=== PATIENT | male | born 1965 | race Caucasian/White ===

== ENCOUNTER → 2016-07-09 | Outpatient (CLI) | payer BC ==
[2015-03-03 19:00] VITALS: BP 128/86
[~2016-07-09] MED LIST: DIPH25CA58 PO; DIVA500T2 PO; HYDR-2762 PO; LURA40TA PO; TRAM50TA PO; ZOLP10TA PO
--- NOTE | 2016-07-09 13:35 | RAD ---
PROCEDURE MRI lumbar spine without contrast. HISTORY Low back pain with left leg pain for 2 weeks TECHNIQUE Sagittal and axial T1 and T2 and sagittal STIR images were acquired of the lumbar spine. Contrast: None COMPARISON February 20, 2014 FINDINGS There is some motion degradation. Lumbar vertebral body stature and AP alignment are preserved. There is again mild degenerative disc disease at L5-S1, mild disc desiccation at L4-5. Conus terminates normally T12-L1. There is no significant focal marrow edema. There is mild lumbar levoscoliosis. There are anterior annular tears L2-3 to L4-5, posterior annular tear L5-S1. L2-3: Neural foramina and spinal canal are adequate. L3-4: Spinal canal and neural foramina are adequate. There is mild buckling of the ligamentum flavum and facet degenerative change. L4-5: There is again minimal disc osteophyte complex and bulge. Spinal canal and neural foramina are adequate. L5-S1: There is again shallow posterior mostly central protrusion, no significant impingement of the descending S1 nerve roots. Spinal canal is overall adequate. Neural foramina are adequate. IMPRESSION 1. Findings are similar comparing with 2014 exam. There is again shallow posterior protrusion at L5-S1 without significant neural impingement or spinal stenosis. There is mild degenerative disc disease at L5-S1 and L4-5, very mild spondylosis. Electronically signed by: Low Jeffries MD (Jul 09, 2016 13:34:28)
== END | disposition home or self-care (01) ==
LOC: MRI 12:26
DX: M51.37 Other intervertebral disc degeneration, lumbosacral region (principal); M25.78 Osteophyte, vertebrae; M47.896 Other spondylosis, lumbar region; M51.27 Other intervertebral disc displacement, lumbosacral region
CPT/HCPCS: 72148

== ENCOUNTER → 2016-07-30 | Outpatient (CLI) | payer BC ==
[2015-03-03 19:00] VITALS: BP 128/86
[~2016-07-30] MED LIST changes: +IOHEXOL 180 MG/ML 10 ML VIAL. ONE; +methylPREDNISolone ACETATE 40 MG/ML VIAL. ONE; +methylPREDNISolone ACETATE 80 MG/ML VIAL. ONE
--- NOTE | 2016-07-31 12:54 | PAIN ---
DATE OF SERVICE: 07/30/2016 DIAGNOSES: Lumbar radiculopathy, lumbar herniated disk and lumbar degenerative disk disease. HISTORY OF PRESENT ILLNESS: The patient is a 50-year-old male who returns for a followup status post lumbar epidural steroid injections, last seen in January 2015. The patient did very well with these with near 80% improvement, but the pain has returned now, over the past several weeks, he was lifting an object off the floor, bending over forward. When he picked it up, he felt something pop in his back and had pain radiating to his left lower extremity as it was previously when he lifted a bag of salt also and this aggravated the pain as well about a week ago. The patient reports it is across the low back into the left posterior gluteus, posterior thigh, posterior calf, into the foot on the left side. The patient reports it is a 7 on a scale of 10, aching and dull with shooting pain, radiating pain and some numbness in the leg, also some weakness with ambulation and standing at work. The patient reports no symptoms in the right lower extremity currently but across the low back bilaterally. The patient did have an MRI scan of the lumbar spine dated 07/09/2016 showing similar finding compared with the 2013 exam, ____ protrusion at L5-S1 without significant nerve impingement or spinal stenosis, mild degenerative disease at L5-S1 and L4-L5 with spinal canal and neuroforamen of adequate L4-L5 shows minimal disk osteophyte complex and bulge as well. PHYSICAL EXAMINATION: VITAL SIGNS: The patient's blood pressure is 148/56, pulse 87, respirations 16, temperature is 98.2 degrees Fahrenheit, height 6 feet 4 inches, weight 277 pounds. GENERAL: The patient is awake, alert, oriented, appropriate with very pleasant demeanor. HEENT: Shows normocephalic, atraumatic. Extraocular movements are intact and symmetrical. Oral cavity, mucous membranes moist and pink. Dentition intact. NECK: Supple, without palpable lymphadenopathy. Swallow reflexes are symmetrical. CHEST: Shows normal infection, breath sounds are clear to auscultation bilaterally. CARDIOVASCULAR: S1, S2, clear. ABDOMEN: The patient's abdomen is obese, soft, nontender, nondistended. No hepatosplenomegaly, no rebound or guarding demonstrated. BACK: Spine grossly midline. Normal appearing thoracic kyphosis and lumbar lordotic curvature. Lumbar paraspinal musculature shows symmetrical on inspection with some moderate tenderness in the middle and lower distribution of paraspinous muscles bilaterally but symmetrical without evidence of atrophy or hypertrophy. No tenderness over the spinous processes. No tenderness over the sacrum or sacroiliac regions. The patient showed good rotation of motion in lumbar spine both laterally greater than 10 degrees right and left as well as extension greater than 10 degrees, forward flexion 45 degrees without difficulty. EXTREMITIES: The lower extremities showed deep tendon reflexes 2+ in the patella and 1+ tendo calcaneus tendons. Motor exam is strong with 5/5 dorsiflexion and extension and equal bilaterally as quadriceps and hamstrings flexion. Peripheral pulses are 1+, posterior tibial and dorsalis pedis pulses. No peripheral edema is noted. No clubbing, no cyanosis. Lower extremities are warm and dry to touch. Equal in color and appearance. Straight leg raising is noted to be positive on the left at about 35 to 40 degrees with pain radiating to posterior gluteus, posterior thigh, which has decreased but no really knee flexion right side is negative. ____ are negative bilaterally. The patient is able to stand, stand on his toes without difficulty, has no loss of balance. He is walking with a normal-appearing gait for short distances ____ not using any assistive devices. Options were discussed with the patient. The patient's old chart was reviewed, as his current medication regimen and updated. REVIEW OF SYSTEMS: Current review of systems updated today as well. We will proceed with a lumbar epidural steroid injection. He has done very well with these in the past. Risks were again discussed including but not limited to bleeding, infection, possibility of epidural hematoma, subsequent neurologic compromise, dural puncture headaches, spinal cord and/or nerve damage, side effects of steroid medications and poor results regarding pain control. The patient understands and wishes to proceed. He should return to clinic in approximately 2 weeks for followup. He was counseled on return appointment, activity level and side effects to be aware of. DIAGNOSES: Lumbar radiculopathy with lumbar herniated disk and lumbar degenerative disk disease. PROCEDURE: Lumbar epidural steroid injection, translaminar approach to the L5-S1 level using C-arm fluoroscopic guidance under sterile prep and drape using local anesthetic. MEDICATIONS INJECTED: 120 mg Depomedrol, plus 10 mL of preservative free normal saline and 2 mL of Isovue contrast. Condition at discharge is stable. The patient tolerated procedure well, had no complications. FLORENCIA FOOTE MD DR: MANE/brigitte JOB#: [id number] / [id number]
== END | disposition home or self-care (01) ==
LOC: PNCL 07:21
PROVIDERS: ATTEND Anesthesiology
DX: M51.16 Intervertebral disc disorders with radiculopathy, lumbar region (principal)
CPT/HCPCS: 62323; J1030; J1040

== ENCOUNTER → 2016-08-13 | Outpatient (CLI) | payer BC ==
[2015-03-03 19:00] VITALS: BP 128/86
[~2016-08-13] MED LIST changes: +QUET100T4 PO
--- NOTE | 2016-08-14 03:34 | PAIN ---
DATE OF SERVICE: 08/13/2016 PROGRESS NOTE DIAGNOSES: Lumbar radiculopathy with lumbar herniated disc and lumbar degenerative disc disease. HISTORY OF PRESENT ILLNESS: The patient is a 50-year-old male who returns for followup status post lumbar epidural steroid injection x 1. The patient reports about 40% improvement after the injection. Has still some pain in the low back and left leg, but much improved. The patient is increasing his activity with greater ease and comfort. Still has some pain at the end of his working day, but during the day, he is doing fairly well. The patient reports his pain as a 7 on a scale of 10 at its worst, but it is only at the end of the day and has only been present for about 3 or 4 days at that level, as he did very well for the first week and a half or so after his injection. The patient reports no new motor or sensory deficits, no new bowel or bladder incontinence or other complaints. He described his pain as sharp, alternating with dull and aching, radiating to the left posterior gluteus, posterior lateral thigh, posterior calf as previously. PHYSICAL EXAMINATION: VITAL SIGNS: Today, the patient's blood pressure is 141/83, pulse 90, respirations 18, temperature 98.0 degrees Fahrenheit, height 6 feet 4 inches, weight is 270 pounds. GENERAL: The patient is awake, alert, oriented, appropriate, very pleasant demeanor. HEENT: Shows normocephalic and atraumatic. Extraocular movements are intact and symmetrical. Oral cavity shows mucous membranes are moist and pink. Dentition is intact. NECK: Shows anterior throat supple without palpable lymphadenopathy noted. Swallow reflex is symmetrical. CHEST: Shows normal with inspection. Breath sounds are clear to auscultation bilaterally. HEART: Shows S1 and S2 clear. No murmurs auscultated. ABDOMEN: Soft, nontender, nondistended. BACK: Shows spine grossly midline. Lumbar paraspinous muscle shows symmetrical. No significant tenderness with palpation, only diffusely tender in the low lumbar distribution bilaterally without radiation. The patient shows full rotational motion of the lumbar spine, both laterally as well as extension and flexion without difficulty. No tenderness over the sacrum and sacroiliac regions with palpation. EXTREMITIES: Lower extremities show deep tendon reflexes at 2+ in the patellar, 1+ tendo-calcaneus tendons, are equal. Motor exam is strong with 5/5 dorsiflexion, extension, quadriceps and hamstring flexion bilaterally. PLAN: Options were discussed with the patient at this time, the patient's old chart was reviewed as his current medication regimen and updated. Current review of systems updated today as well. We will proceed with a second lumbar epidural steroid injection today with fluoroscopic guidance. Risks were again discussed including but not limited to bleeding, infection, possibility of epidural hematoma, subsequent neurologic compromise, dural puncture, headaches, spinal cord and/or nerve damage, side effects of steroid medication and poor results regarding pain control. The patient understands and wishes to proceed. The patient will return to clinic in approximately 2 weeks for followup. He is counseled on return appointment, activity level, and side effects to be aware of. DIAGNOSES: Lumbar radiculopathy with lumbar herniated disc and lumbar degenerative disk disease. PROCEDURES: Lumbar epidural steroid injection in translaminar approach at the L5-S1 level using C-arm fluoroscopic guidance under sterile prep and drape using local anesthetic. MEDICATIONS INJECTED: Depo-Medrol 120 mg plus 10 mL of preservative-free normal saline and 2 mL of Isovue for contrast. CONDITION AT DISCHARGE: Stable. The patient tolerated the procedure well, had no complications. FLORENCIA FOOTE MD DR: MANE/nts JOB#: [id number] / [id number]
== END ==
LOC: PNCL 07:39
PROVIDERS: ATTEND Anesthesiology
DX: M51.16 Intervertebral disc disorders with radiculopathy, lumbar region (principal)
CPT/HCPCS: 62323; J1030; J1040

== ENCOUNTER → 2016-10-08 | Outpatient (CLI) | payer BC ==
[2015-03-03 19:00] VITALS: BP 128/86
--- NOTE | 2016-10-09 00:20 | PN ---
DATE: 10/08/2016 PROGRESS NOTE FOR PAIN CLINIC DIAGNOSES: Lumbar radiculopathy with lumbar herniated disk, lumbar degenerative disk disease. HISTORY OF PRESENT ILLNESS: The patient is a 51-year-old male who returns for followup status post lumbar epidural steroid injections x 2. The patient reports about 40% improvement overall, was initially doing much better, but the pain is returning now in the low back and into his left lower extremity, initially it was the right one, the right has cleared up now with significant pain in his left leg as he had on his last visit. The patient reports anywhere from a 5 to 8 on scale of 10, it is burning, it is sharp, aching and dull, worse with standing and walking, changing positions, better with sitting or lying down, still sleeping well though without any difficulty sleeping through the night. The patient reports no new motor or sensory deficits, no new bowel or bladder incontinence or other complaints, but still significant pain in the low back, left leg, mostly in the posterior gluteus, posterior thigh, posterior lower leg to the ankle on the left side only. PHYSICAL EXAMINATION: VITAL SIGNS: Today, the patient's blood pressure is 129/79, pulse 90, respirations 20, temperature 97.8 degrees Fahrenheit, height 6 feet 4 inches, weighs 276 pounds. GENERAL: The patient is awake, alert, oriented, appropriate, has a very pleasant demeanor. HEENT: Head shows normocephalic, atraumatic. Extraocular movements are intact, symmetrical. Oral cavity has mucous membranes moist and pink. Dentition is intact. NECK: Shows anterior throat supple without palpable lymphadenopathy noted. Swallow reflex is symmetrical. CHEST: Shows normal on inspection. Breath sounds are clear to auscultation bilaterally. HEART: Shows S1 and S2 clear. ABDOMEN: Soft, nontender, nondistended. No palpable organomegaly is noted. No rebound or guarding demonstrated. BACK: The patient's back shows spine grossly in the midline. Lumbar paraspinous muscle shows some moderate tenderness with palpation bilaterally in the lower lumbar distribution, but only diffusely without atrophy, hypertrophy or asymmetry. No radiation of pain, no tenderness over the sacrum or sacroiliac regions. The patient shows good rotational motion of the lumbar spine, both laterally greater than 10 degrees right and left as well as extension greater than 10 degrees, forward flexion 45 degrees without exacerbation of pain. EXTREMITIES: The patient's lower extremities showed deep tendon reflexes at 2+ in the patellar, 1+ tendo-calcaneus tendons are symmetrical. Motor exam is strong with 5/5 dorsiflexion and extension as well as quadriceps and hamstring flexion and symmetrical. Options were discussed with the patient and the patient's old chart was reviewed as his current medication regimen updated. Current review of systems updated today as well and we will proceed with a third in the series of lumbar epidural steroid injection with fluoroscopic guidance. Risks were again discussed including, but not limited to bleeding, infection, possibility of epidural hematoma, subsequent neurologic compromise, dural puncture, headaches, spinal cord and/or nerve damage, side effects of steroid medication and poor results regarding pain control. The patient understands and wishes to proceed. The patient will return to clinic in approximately 2 weeks for followup, was counseled on return appointment, activity level and side effects to be aware of. We also discussed physical therapy and weight loss with the patient. He is interested in both these. We will make some arrangements for some pool therapy, also some weight loss training resources were shared with him. DIAGNOSIS: Lumbar radiculopathy with lumbar degenerative disk disease and lumbar herniated disk. PROCEDURE: Lumbar epidural steroid injection in translaminar approach at L5-S1 level using C-arm fluoroscopic guidance under sterile prep and drape using local anesthetic. Medication injected is 120 mg Depo-Medrol plus 10 mL of preservative-free normal saline and 2 mL Isovue for contrast. CONDITION AT DISCHARGE: Stable. The patient tolerated procedure well, had no complications. FLORENCIA FOOTE MD DR: MANE/brigitte JOB#: [id number] / [id number]
== END | disposition home or self-care (01) ==
LOC: PNCL 08:07
PROVIDERS: ATTEND Anesthesiology
DX: M51.16 Intervertebral disc disorders with radiculopathy, lumbar region (principal)
CPT/HCPCS: 62323; J1030; J1040

== ENCOUNTER → 2018-07-26 | Outpatient (CLI) | payer BC ==
[2015-03-03 19:00] VITALS: BP 128/86
[~2018-07-26] MED LIST changes: -HYDR-2762 PO; +HYDR-2765 PO
--- NOTE | 2018-07-26 09:03 | PAIN ---
DATE OF SERVICE: 07/26/2018 PROGRESS NOTE FOR PAIN CLINIC DIAGNOSES: Lumbar radiculopathy with lumbar herniated disk and lumbar degenerative disk disease. HISTORY OF PRESENT ILLNESS: The patient is a 52-year-old male who returns for followup status post lumbar epidural steroid injections x 3, last seen in September of 2016. The patient did very well with about a 75% improvement. The patient reports the pain is returning now over the past few months in the low back, bilateral lower extremities, mostly in the left, but in the posterior gluteus, posterior thighs bilaterally to the knees and into the posterior calf, some on the lateral right side as well. The patient reports it is worse with walking, standing, change in positions, initially with increasing activity, walking, doing work activities, household activities, traveling better, sleeping better, reports it awakens him from sleep about every 5-6 hours now. The patient reports pain is 9 on a scale of 10 at its worst, 8 on average, 6 at its least. Described as sharp and constant, becoming more unbearable, radiating, shooting and aching pain across the back. The patient reports no new motor or sensory deficits and no new bowel or bladder incontinence or other complaints. PHYSICAL EXAMINATION: VITAL SIGNS: The patient's blood pressure 131/99, pulse 87, respirations 18 and temperature 97.6 degrees Fahrenheit. Height 6 feet 4 inches and weight is 271 pounds. GENERAL: The patient is awake, alert, oriented, appropriate and very pleasant demeanor. HEENT: Head shows normocephalic and atraumatic. Extraocular movements are intact and symmetrical. Oral cavity: Mucous membranes moist and pink. Dentition is intact. NECK: Shows anterior throat supple without palpable lymphadenopathy noted. Swallow reflex symmetrical. CHEST: Shows normal with inspection. Breath sounds clear to auscultation bilaterally. HEART: Shows S1 and S2 clear. No murmurs auscultated. ABDOMEN: Soft, nontender and nondistended. No palpable organomegaly is noted. No rebound or guarding demonstrated. BACK: Shows spine grossly in the midline. Normal appearing thoracic kyphosis and lumbar lordotic curvature. Lumbar paraspinous muscle shows symmetrical on inspection and on palpation shows some moderate tenderness diffusely bilaterally but only diffusely without radiation. The patient has good rotational motion of the lumbar spine, both laterally greater than 10 degrees right and left as well as extension greater than 10 degrees, forward flexion 45 degrees without significant pain reported. EXTREMITIES: The patient's lower extremities show deep tendon reflexes 2+ in the patellar, 1+ tendo-calcaneus tendons. Motor exam is strong with 5/5 dorsiflexion, extension, quadriceps and hamstring flexion equal. Peripheral pulses are 1+ posterior tibial. No peripheral edema is noted bilaterally. Options were discussed with the patient. The patient's old chart was reviewed as well as his current medication regimen updated. Current review of systems updated today as well and we will proceed with a first in the series of lumbar epidural steroid injection today with fluoroscopic guidance. Risks were again discussed including, but not limited to bleeding, infection, possibility of epidural hematoma, subsequent neurological compromise, dural puncture, headaches, spinal cord and/or nerve damage, side effects of steroid medication and poor results regarding pain control. The patient understands and wished to proceed. The patient will return to the clinic in approximately 2 weeks for followup, was counseled as to return appointment, activity level and side effects to be aware of. DIAGNOSES: Lumbar radiculopathy with lumbar herniated disk and lumbar degenerative disk disease. PROCEDURE: Lumbar epidural steroid injection, translaminar approach, L5-S1 level using C-arm fluoroscopic guidance under sterile prep and drape using local anesthetic. MEDICATION INJECTED: A total of 120 mg Depo-Medrol plus 10 mL of preservative-free normal saline and 2 mL of Isovue for contrast. CONDITION AT DISCHARGE: Stable. The patient tolerated procedure well and had no complications. FLORENCIA FOOTE MD DR: MANE/brigitte JOB#: [id number] / [id number]
== END | disposition home or self-care (01) ==
LOC: PNCL 07:23
PROVIDERS: ATTEND Anesthesiology
DX: M51.16 Intervertebral disc disorders with radiculopathy, lumbar region (principal)
CPT/HCPCS: 62323; J1030; J1040; Q9965

== ENCOUNTER → 2018-08-16 | Outpatient (CLI) | payer BC ==
[2015-03-03 19:00] VITALS: BP 128/86
--- NOTE | 2018-08-16 19:36 | PAIN ---
DATE OF SERVICE: 08/16/2018 DIAGNOSES: Lumbar radiculopathy with lumbar degenerative disk disease and lumbar herniated disk. HISTORY OF PRESENT ILLNESS: The patient is a 52-year-old male who returns for followup status post lumbar epidural steroid injection x 1. The patient reports about 40% improvement overall, doing much better with this. Pain is low back, bilateral lower extremities. Pain is still radiating into the posterior gluteus, posterior thighs bilaterally as well as lateral anterior thigh. The patient reports it is a 6 on a scale 10 at its least, a 7 on its worst, 7 on average. The patient reports aching, dull, shooting, radiating pain, worse with standing and walking, again much better after the last injection. The patient reports for several weeks, he was doing better with work activities, doing greater distance walking, household activity as well and sleeping much better. The patient reports it does not awaken him from sleep now, which it was previously. The patient reports no new motor or sensory deficits, no new bowel or bladder incontinence or other complaints. The patient is quite pleased with his progress thus far. He has been increasing his activity, although the pain is beginning to return slightly and still about 40%, overall improved. PHYSICAL EXAMINATION: VITAL SIGNS: The patient's blood pressure 119/81, pulse 87, respirations 16, temperature is 97.5 degrees, height 6 feet 4 inches, weight is 274 pounds. GENERAL: The patient is awake, alert, oriented, appropriate, very pleasant demeanor. HEENT: Head shows normocephalic, atraumatic. Extraocular muscles are intact and symmetrical. Oral cavity: Mucous membranes moist and pink. Dentition is intact. NECK: Shows anterior throat supple without palpable lymphadenopathy noted. Swallow reflex is symmetrical. CHEST: Shows normal on inspection. Breath sounds clear to auscultation bilaterally. HEART: Shows S1, S2 clear. No murmurs auscultated. ABDOMEN: Soft, nontender, nondistended. No palpable organomegaly is noted. No rebound or guarding demonstrated. BACK: Shows spine grossly in the midline. Normal appearing thoracic kyphosis and lumbar lordotic curvature. Lumbar paraspinous musculature shows symmetrical on inspection, on palpation shows some moderate tenderness but only diffusely throughout the middle and lower distribution of paraspinous muscles without radiation. No trigger points. The patient has good rotation both laterally as well as extension and flexion without difficulty. EXTREMITIES: Lower extremities show deep tendon reflexes at 2+ in the patellar, 1+ tendo calcaneus tendons. Motor exam is strong with 5/5 dorsiflexion, extension, quadriceps and hamstring flexion and equal. Peripheral pulses are 1+ posterior tibial. No peripheral edema is noted. Options were discussed with the patient. The patient's old chart was reviewed as his current medication regimen and updated. Current review of systems is updated today as well. We will proceed with a second in the series of lumbar epidural steroid injection today with fluoroscopic guidance. Risks were again discussed including, but not limited to bleeding, infection, possibility of epidural hematoma, subsequent neurological compromise, dural puncture, headaches, spinal cord and/or nerve damage, side effects of steroid medication and poor results regarding pain control. The patient understands and wished to proceed. The patient to return to clinic in approximately 2 weeks for followup, was counseled on return appointment, activity level and side effects to be aware of. DIAGNOSES: Lumbar radiculopathy with lumbar degenerative disk disease, lumbar herniated disk. PROCEDURE: Lumbar epidural steroid injection, translaminar approach at L5-S1 level using C-arm fluoroscopic guidance under sterile prep and drape using local anesthetic. MEDICATION INJECTED: A total of 120 mg Depo-Medrol plus 10 mL of preservative free normal saline, 2 mL of Isovue for contrast. CONDITION AT DISCHARGE: Stable. The patient tolerated procedure well, had no complications. FLORENCIA FOOTE MD DR: MANE/brigitte JOB#: [id number] / [id number]
== END | disposition home or self-care (01) ==
LOC: PNCL 07:40
PROVIDERS: ATTEND Anesthesiology
DX: M51.16 Intervertebral disc disorders with radiculopathy, lumbar region (principal)
CPT/HCPCS: 62323; J1030; J1040; Q9965

== ENCOUNTER → 2019-05-29 | Outpatient (CLI) | payer BC ==
[2015-03-03 19:00] VITALS: BP 128/86
--- NOTE | 2019-05-29 09:32 | PAIN ---
DATE OF SERVICE: 05/29/2019 PROGRESS NOTE FOR PAIN CLINIC DIAGNOSES: Lumbar radiculopathy with lumbar herniated disk, lumbar degenerative disk disease. HISTORY OF PRESENT ILLNESS: The patient is a 53-year-old male who returns for followup status post lumbar epidural steroid injections x 3, last seen on 11/14/2018. The patient did very well with about 50% improvement overall. The patient reports the pain began to return after about the past month or month and a half in the low back and bilateral lower extremities, posterior gluteus, radiating to posterior thighs, posterior calves, slightly worse on the left than the right, but present bilaterally. The patient reports it is an 8 on a scale of 10 at its worst, 6 on average, 4 at its least over the past week and is a 4 today. The patient reports it is aching, sharp, tingling, radiating, worse with walking, standing, changing positions and also with driving as this is his job. He is driving daily, which exacerbated the pain. The patient reports meloxicam helped significantly. He is requesting a refill of this as well. The patient reports no new motor or sensory deficits, no new bowel or bladder incontinence or other complaints. PHYSICAL EXAMINATION: VITAL SIGNS: The patient's blood pressure 125/80, pulse 74, respirations 18, temperature 97.6 degrees Fahrenheit, height is 6 feet 4 inches, weight is 270 pounds. GENERAL: The patient is awake, alert, oriented, appropriate, very pleasant demeanor. HEENT: Shows normocephalic, atraumatic. Extraocular movements are intact and symmetrical. Oral cavity: Mucous membranes moist and pink. Dentition is intact. NECK: Shows anterior throat supple without palpable lymphadenopathy noted. Swallow reflex symmetrical. CHEST: Shows normal on inspection. Breath sounds clear to auscultation bilaterally. HEART: Shows S1, S2 clear. No murmurs auscultated. ABDOMEN: Soft, nontender, nondistended. No palpable organomegaly is noted. No rebound or guarding demonstrated. BACK: Shows spine grossly in the midline. Normal appearing thoracic kyphosis, some minor flattening of lumbar lordotic curvature. Lumbar paraspinous muscle shows symmetrical on inspection; with palpation, shows some moderate tenderness diffusely bilaterally, diffusely without significant radiation. EXTREMITIES: The patient's lower extremities show deep tendon reflexes at 2+ patellar, 1+ tendo-calcaneus tendons. Motor exam is strong with 5/5 dorsiflexion, extension, quadriceps and hamstring flexion and equal bilaterally. Peripheral pulses are 1+ posterior tibia. No peripheral edema is noted bilaterally. Options were discussed with the patient. The patient's old chart was reviewed as his current medication regimen updated. Current review of systems updated today as well. We will proceed with a lumbar epidural steroid injection today with fluoroscopic guidance. Risks were again discussed including, but not limited to bleeding, infection, possibility of epidural hematoma, subsequent neurological compromise, dural puncture, headaches, spinal cord and/or nerve damage, side effects of steroid medication and poor results regarding pain control. The patient understands and wished to proceed. The patient will return to clinic in approximately 2 weeks for followup. He was counseled on return appointment, activity level and side effects to be aware of. DIAGNOSES: Lumbar radiculopathy with lumbar degenerative disk disease and lumbar herniated disk. PROCEDURE: Lumbar epidural steroid injection, translaminar approach L5-S1 level using C-arm fluoroscopic guidance under sterile prep and drape using local anesthetic. MEDICATION INJECTED: A total of 120 mg Depo-Medrol plus 10 mL of preservative-free normal saline and 2 mL of contrast. CONDITION AT DISCHARGE: Stable. The patient tolerated the procedure well, had no complications. FLORENCIA FOOTE MD DR: MANE/brigitte JOB#: [id number] / [id number]
== END ==
LOC: PNCL 08:10
PROVIDERS: ATTEND Anesthesiology
DX: M51.16 Intervertebral disc disorders with radiculopathy, lumbar region (principal)
CPT/HCPCS: 62323; J1030; J1040; Q9965

== ENCOUNTER → 2019-06-14 | Outpatient (CLI) | payer BC ==
[2015-03-03 19:00] VITALS: BP 128/86
--- NOTE | 2019-06-14 09:53 | PAIN ---
DATE OF SERVICE: 06/14/2019 PROGRESS NOTE FOR PAIN CLINIC DIAGNOSES: Lumbar radiculopathy with lumbar herniated disk, lumbar degenerative disk disease. HISTORY OF PRESENT ILLNESS: The patient is a 53-year-old male who returns for followup status post lumbar epidural steroid injection x 1 in this series. The patient reports it is about 25% improvement overall in the low back, bilateral lower extremities. The patient reports the pain is more noticeable now on the left side, the posterior gluteus, posterior thigh and posterior calf, radiating some on the right as well and across the low back, but mostly on the left side. The patient reports it is worse with walking, standing or changing positions, is better with sitting or lying down initially, though he is doing much better with walking distances, doing work activities, household activities, sleeping better at night. Reports it does not awaken him from sleep at night. The patient describes the pain as burning in the back, aching and shooting in the lower extremities as described. The patient reports it is a 9 on a scale of 10 at its worst in the past week, 7 on average, 5 at its least and is a 7 today. The patient reports no new motor or sensory deficits, no new bowel or bladder incontinence or other complaints. PHYSICAL EXAMINATION: VITAL SIGNS: The patient's blood pressure is 121/79, pulse 86, respirations 18, temperature 98.1 degrees Fahrenheit, height 6 feet 4 inches, weight is 277 pounds. GENERAL: The patient is awake, alert, oriented, appropriate, very pleasant demeanor. HEENT: Head shows normocephalic, atraumatic. Extraocular movements are intact and symmetrical. Oral cavity shows mucous membranes moist and pink. Dentition is intact. NECK: Shows anterior throat supple without palpable lymphadenopathy noted. Swallow reflex symmetrical. CHEST: Shows normal on inspection. Breath sounds are clear bilaterally. HEART: Shows S1, S2 clear. No murmurs auscultated. ABDOMEN: Soft, nontender, nondistended. No palpable organomegaly is noted. No rebound or guarding demonstrated. BACK: Shows spine grossly in the midline. Normal-appearing thoracic kyphosis, some minor flattening of lumbar lordotic curvature. Lumbar paraspinous muscle shows symmetrical on inspection, with palpation shows some moderate tenderness diffusely, but only diffusely without significant radiation. The patient shows good rotational motion of lumbar spine without difficulty. EXTREMITIES: Lower extremities show deep tendon reflexes at 2+ in patella, 1+ tendo-calcaneus tendons. Motor exam is strong and 5/5 in dorsiflexion, extension, quadriceps, hamstring flexion and symmetrical. Peripheral pulses 1+ in posterior tibia. No peripheral edema is noted. Options were discussed with the patient. The patient's old chart was reviewed as his current medication regimen updated. Current review of systems updated today as well. We will proceed with a second in the series of lumbar epidural steroid injection today with fluoroscopic guidance. Risks were again discussed including, but not limited to bleeding, infection, possibility of epidural hematoma, subsequent neurological compromise, dural puncture, headaches, spinal cord and/or nerve damage, side effects of steroid medication and poor results regarding pain control. The patient understands and wished to proceed. The patient will return to clinic in approximately 2 weeks for followup, was counseled on return appointment, activity level and side effects to be aware of. DIAGNOSES: Lumbar radiculopathy with lumbar herniated disk, lumbar degenerative disk disease. PROCEDURE: Lumbar epidural steroid injection, translaminar approach L5-S1 level using C-arm fluoroscopic guidance under sterile prep and drape using local anesthetic. MEDICATION INJECTED: A total of 120 mg Depo-Medrol plus 10 mL of preservative-free normal saline and 2 mL of contrast. CONDITION AT DISCHARGE: Stable. The patient tolerated procedure well, had no complications. FLORENCIA FOOTE MD DR: MANE/brigitte JOB#: [id number] / [id number]
== END ==
LOC: PNCL 08:22
PROVIDERS: ATTEND Anesthesiology
DX: M51.16 Intervertebral disc disorders with radiculopathy, lumbar region (principal)
CPT/HCPCS: 62323; J1030; J1040; Q9965

== ENCOUNTER → 2019-09-05 | Outpatient (CLI) | payer OTHER ==
[2015-03-03 19:00] VITALS: BP 128/86
[~2019-09-05] MED LIST changes: -IOHEXOL 180 MG/ML 10 ML VIAL. ONE; -methylPREDNISolone ACETATE 40 MG/ML VIAL. ONE; -methylPREDNISolone ACETATE 80 MG/ML VIAL. ONE
--- NOTE | 2019-09-05 16:56 | KCIC ---
EXAM: MRI RIGHT ELBOW DATE: 09/05/2019 3:30 PM CLINICAL INDICATION: Lateral right elbow pain COMPARISON: None. TECHNIQUE: Multiplanar, multisequence MR imaging of the right elbow was performed without IV contrast. FINDINGS: No significant elbow joint effusion. T1 marrow signal is grossly preserved. No evidence for fracture or osteonecrosis. Articular cartilage is grossly preserved without definite full-thickness cartilage defect Common flexor tendon origin is grossly normal in signal and morphology. The ulnar collateral ligament is intact. There is mild thickening and increased signal within the common extensor tendon origin as well as overlying soft tissues. Mild edema is also seen within the likely extensor digitorum muscle. The radial collateral ligament and lateral ulnar collateral ligament are grossly intact. Annular ligament is not well seen. Biceps and brachialis tendons are intact with normal signal and morphology without significant bicipitoradial bursal fluid. Triceps tendon is intact with normal signal and morphology. IMPRESSION: 1. Changes of lateral epicondylitis with tendinosis of the common extensor tendon group and mild associated soft tissue edema. Edema within the extensor digitorum muscle likely low-grade strain. Electronically signed by: Vivek Reno MD (09/05/2019 4:53 PM) [id number]
== END | disposition home or self-care (01) ==
LOC: KCIC MRI 15:14
PROVIDERS: ATTEND Orthopaedic Surgery Sports Medicine
DX: M77.11 Lateral epicondylitis, right elbow (principal)
CPT/HCPCS: 73221

== ENCOUNTER → 2019-11-15 | Outpatient (CLI) | payer OTHER ==
[2015-03-03 19:00] VITALS: BP 128/86
[~2019-11-15] MED LIST changes: +IOHEXOL 180 MG/ML 10 ML VIAL. ONE; +methylPREDNISolone ACETATE 40 MG/ML VIAL. ONE; +methylPREDNISolone ACETATE 80 MG/ML VIAL. ONE
--- NOTE | 2019-11-15 11:13 | PAIN ---
DATE OF SERVICE: 11/15/2019 PROGRESS NOTE FOR PAIN CLINIC DIAGNOSES: Lumbar radiculopathy with lumbar herniated disk, lumbar degenerative disk disease. HISTORY OF PRESENT ILLNESS: The patient is a 54-year-old male who returns for followup status post lumbar epidural steroid injections x 2, most recently 06/14/2019. The patient did very well with the last injection. He reports overall about 30% improvement to this date, still improved, more significantly improved early on, but now the pain is returning in the low back, bilateral lower extremities, posterior gluteus, posterior thighs, posterior calves, worse on the right than the left at this time and with some right knee pain reported as well. The patient reports the pain is burning and sharp in the back, radiating and constant in the legs with activity. He reports an 8 on a scale of 10 over the last week at all times, average, worst and its least and is an 8 today. The patient reports no new motor or sensory deficits, no new bowel or bladder incontinence. The patient reports it does awaken him from sleep about 3-4 times each night. PHYSICAL EXAMINATION: VITAL SIGNS: The patient's blood pressure 131/85, pulse 68, respirations 18, temperature is 97.8 degrees Fahrenheit, height is 6 feet 4 inches, weight is 276 pounds. GENERAL: The patient is awake, alert, oriented, appropriate, very pleasant demeanor. HEENT: Shows normocephalic, atraumatic. Extraocular movements are intact and symmetrical. Oral cavity: Mucous membranes moist and pink. Dentition is intact. NECK: Shows anterior throat supple without palpable lymphadenopathy noted. Swallow reflex symmetrical. CHEST: Shows normal on inspection. Breath sounds are clear bilaterally. HEART: Shows S1, S2 clear. No murmurs auscultated. ABDOMEN: Soft, nontender, nondistended. No palpable organomegaly is noted. No rebound or guarding demonstrated. BACK: Shows spine grossly in the midline. Normal appearing thoracic kyphosis and some minor flattening of lumbar lordotic curvature. Lumbar paraspinous muscle shows symmetrical on inspection, on palpation shows some moderate tenderness diffusely bilaterally but only diffusely without significant radiation. The patient has good rotational motion of lumbar spine, both laterally greater than 10 degrees right and left as well as extension greater than 10 degrees, forward flexion 45 degrees without significant pain. EXTREMITIES: Lower extremities show deep tendon reflexes 2+ in the patellar, 1+ tendo-calcaneus tendons. Motor exam is 5/5 with dorsiflexion, extension, quadriceps and hamstring flexion symmetrical. Peripheral pulses are 1+ posterior tibia. No peripheral edema is noted bilaterally. Options were discussed with the patient. The patient's old chart was reviewed as his current medication regimen updated. Current review of systems updated today as well. We will proceed with a first in this series of lumbar epidural steroid injection today with fluoroscopic guidance. Risks were discussed including but not limited to bleeding, infection, possibility of epidural hematoma, subsequent neurological compromise, dural puncture, headaches, spinal cord and/or nerve damage, side effects of steroid medication and poor results regarding pain control. The patient understands and wished to proceed. The patient will return to clinic in approximately 2 weeks for followup. He was counseled on return appointment, activity level and side effects to be aware of. DIAGNOSES: Lumbar radiculopathy with lumbar herniated disk, lumbar degenerative disk disease. PROCEDURE: Lumbar epidural steroid injection, translaminar approach at L5-S1 level using C-arm fluoroscopic guidance under sterile prep and drape using local anesthetic. MEDICATION INJECTED: A total of 120 mg Depo-Medrol plus 10 mL of preservative-free normal saline and 2 mL of contrast. CONDITION AT DISCHARGE: Stable. The patient tolerated procedure well, had no complications. FLORENCIA FOOTE MD DR: MANE/brigitte JOB#: [id number] / [id number]
== END ==
LOC: PNCL 07:44
PROVIDERS: ATTEND Anesthesiology
DX: M51.16 Intervertebral disc disorders with radiculopathy, lumbar region (principal)
CPT/HCPCS: 62323; J1030; J1040; Q9965

== ENCOUNTER → 2020-02-22 | Outpatient (CLI) | payer OTHER ==
[2015-03-03 19:00] VITALS: BP 128/86
[~2020-02-22] MED LIST changes: -IOHEXOL 180 MG/ML 10 ML VIAL. ONE; -methylPREDNISolone ACETATE 40 MG/ML VIAL. ONE; -methylPREDNISolone ACETATE 80 MG/ML VIAL. ONE
--- NOTE | 2020-02-22 10:47 | PDOC ---
Progress Note - Pain Clinic Date of Service: DOS: DATE: 02/22/20 TIME: 10:43 Diagnosis: Dx: Lumbar radiculopathy with lumbar herniated disc and lumbar degenerative disc disease History or Present Illness: HPI: 54-year-old male returns follow-up status post lumbar epidural steroid injection x1 most recently seen November 15, 2019. Patient reports about 75% improvement initially now down to about 50% overall but pain lasting improvement over about 4 months patient reports he is doing much better at the pain returning now however in the low back and left lower extremity posterior gluteus posterior thigh posterior calf lateral thigh to some extent into the posterior heel patient which is a 9 on scale 10 is worst over the past week 8 on average 6 at its least is a 6 today. Patient reports no new motor or sensory deficits reports initially was doing much better distance walking doing work activities household activities traveling with greater ease and comfort as well. She reports now it wakes him asleep for only rarely and is returning in a similar pattern as it was previously. Patient reports no new motor or sensory deficits no new bowel or bladder incontinence or other complaints. Physical Exam: VS: Blood pressure is 124/81 pulse 78 respirations 18 temperature 97.9 F height is 6 foot 4 inches weight is 277 pounds PE: PHYSICAL EXAMINATION: GENERAL: The patient is awake, alert, oriented, appropriate, very pleasant demeanor HEENT: Shows normocephalic, atraumatic. Extraocular movements are intact and symmetrical. Oral cavity: Mucous membranes moist and pink. NECK: Shows anterior throat supple without palpable lymphadenopathy noted. CHEST: Shows normal on inspection. Breath sounds are clear bilaterally, no rales rhonchi or wheezes auscultated. HEART: Shows S1, S2 clear. No murmurs auscultated. ABDOMEN: Soft, nontender, nondistended. No palpable organomegaly is noted. No rebound or guarding demonstrated. BACK: Shows spine grossly in the midline. Normal-appearing cervical lordotic curvature. There is slightly increased thoracic kyphosis, some minor flattening of the lumbar lordotic curvature. Lumbar paraspinous muscles show symmetrical on inspection, on palpation shows some moderate tenderness diffusely throughout the upper, middle and lower distribution of the paraspinous muscles bilaterally but without specific trigger points, without radiation of pain. The patient has good rotational motion of the lumbar spine, both laterally as well as extension and flexion without significant difficulty. No tenderness over the spinous processes, sacrum or sacroiliac regions. EXTREMITIES: Lower extremities show deep tendon reflexes 2+ in the patellar and tendo calcaneus tendons. Motor exam is 5 on a scale of 5 with right dorsiflexion, extension, quadriceps and hamstring flexion and 5/5 on the left. Peripheral pulses are 1+ posterior tibial. No peripheral edema is noted bilaterally. Lower extremities are warm and dry to touch, equal in color and appearance. Straight leg raise noted to be negative on the right, left side is positive at about 40 degrees decreased with knee flexion.. Gaenslen's and Deshawn's maneuvers are negative as well. SKIN: Shows warm and dry, good turgor. No edema. No sores, rashes or bruising throughout. Procedure: Procedure: Options were discussed with the patient. Patient will chart reviewed his curr ent medication regimen updated current review of systems updated today as well. We will preauthorize patient for a second in the series lumbar epidural steroid injections did very well with the last injection with him again about 75% improvement now returning the low back left lower extremity in a radicular pattern in the L5-S1 dermatomal distribution on the left. We will plan on a translaminar approach at L5-S1 level lumbar epidural steroid injection once approved. In meantime patient will be given a new prescription for meloxicam 15 mg daily as well as Medrol Dosepak with instructions side effects aware with each of these. Patient to follow-up once preauthorization is obtained we will plan on lumbar epidural steroid injection at that time. Medication Injected: Med Injected: None Condition at Discharge: Condition at Discharge: Condition at discharge stable FLORENCIA FOOTE MD Feb 22, 2020 10:47
== END | disposition home or self-care (01) ==
LOC: PNCL 09:58
PROVIDERS: ATTEND Anesthesiology
DX: M51.16 Intervertebral disc disorders with radiculopathy, lumbar region (principal); Z79.899 Other long term (current) drug therapy
CPT/HCPCS: 99212; G0463

== ENCOUNTER → 2020-03-07 | Outpatient (CLI) | payer OTHER ==
[2015-03-03 19:00] VITALS: BP 128/86
[~2020-03-07] MED LIST changes: +IOHEXOL 180 MG/ML 10 ML VIAL. ONE; +methylPREDNISolone ACETATE 40 MG/ML VIAL. ONE; +methylPREDNISolone ACETATE 80 MG/ML VIAL. ONE
--- NOTE | 2020-03-07 09:30 | PDOC ---
Progress Note - Pain Clinic Date of Service: DOS: DATE: 03/07/20 TIME: 09:26 Diagnosis: Dx: Lumbar radiculopathy with lumbar herniated disc and lumbar degenerative disc disease History or Present Illness: HPI: 54-year-old male returns follow-up status post lumbar epidural steroid injections most recently November 15, 2019 patient did well with pain returning now in the low back and into the left lower extremity as it was previously in the posterior gluteus posterior thigh posterior calf worse with walking standing changing positions. Patient ports did very well about 40% improvement for the first 2 months after the last injection but now the pain is returning. Patient ports burning sharp pain more constant in the low back and left leg worse at night worse with walking standing changing positions patient rates pain as a 9 on a scale of 10 over the past week at its worst 7 on average 6 at its least and is a 7 today. Patient reports initially was doing much better with distance walking doing work activities household activities sleeping better at night now is waking from sleep about every 3-4 hours. Patient reports no new motor or sensory deficits no new bowel or bladder incontinence or other complaints. Physical Exam: VS: Blood pressure 133/66 pulse 75 respirations 18 temperature is 97.7 F height is 6 foot 4 inches weight is 277 pounds PE: PHYSICAL EXAMINATION: GENERAL: The patient is awake, alert, oriented, appropriate, very pleasant demeanor HEENT: Shows normocephalic, atraumatic. Extraocular movements are intact and symmetrical. Oral cavity: Mucous membranes moist and pink. NECK: Shows anterior throat supple without palpable lymphadenopathy noted. Swallow reflex symmetrical. CHEST: Shows normal on inspection. Breath sounds are clear bilaterally, no rales rhonchi or wheezes auscultated. HEART: Shows S1, S2 clear. No murmurs auscultated. ABDOMEN: Soft, nontender, nondistended, obese. No palpable organomegaly is noted. No rebound or guarding demonstrated. BACK: Shows spine grossly in the midline. Normal-appearing cervical lordotic curvature. There is slightly increased thoracic kyphosis, some minor flattening of the lumbar lordotic curvature. Lumbar paraspinous muscles show symmetrical on inspection, on palpation shows some moderate tenderness diffusely throughout the upper, middle and lower distribution of the paraspinous muscles bilaterally, but without specific trigger points, without radiation of pain. The patient has good rotational motion of the lumbar spine, both laterally as well as extension and flexion without significant difficulty. No tenderness over the spinous processes, sacrum or sacroiliac regions. EXTREMITIES: Lower extremities show deep tendon reflexes 2+ in the patellar and tendo calcaneus tendons. Motor exam is 5 on a scale of 5 with right dorsiflexion, extension, quadriceps and hamstring flexion and 5/5 on the left. Peripheral pulses are 1+ posterior tibial. No peripheral edema is noted bilaterally. Lower extremities are warm and dry to touch, equal in color and appearance. SKIN: Shows warm and dry, good turgor. No edema. No sores, rashes or bruising throughout. Procedure: Procedure: Options were discussed with the patient. Patient's old chart was reviewed his his current medication regimen updated current review of systems updated today as well. We will proceed with lumbar epidural steroid injection today with fluoroscopic guidance. Risks were discussed including but not limited to: Bleeding, infection, possibility of epidural hematoma and subsequent neurological compromise, dural puncture, headaches, spinal cord and/or nerve da mage, side effects of steroid medication, and poor results regarding pain control. Patient understands wished to proceed. Patient return to clinic in approximate 2 weeks for follow-up was counseled as to return appointment activity level and side effects to be aware of. Medication Injected: Med Injected: Procedure is lumbar epidural steroid injection under local anesthetic using sterile prep and drape at the L5-S1 level using C-arm fluoroscopic guidance in both AP and lateral views medications injected is 120 mg Depo-Medrol + 10 mL preservative-free normal saline and 2 mL contrast- condition at discharge is stable patient tolerated procedure well had no complications. Condition at Discharge: Condition at Discharge: Condition at discharge stable patient tolerated procedure well had no complications. FLORENCIA FOOTE MD Mar 07, 2020 09:30
== END | disposition home or self-care (01) ==
LOC: PNCL 08:56
PROVIDERS: ATTEND Anesthesiology
DX: M51.16 Intervertebral disc disorders with radiculopathy, lumbar region (principal); Z79.899 Other long term (current) drug therapy
CPT/HCPCS: 62323; J1030; J1040; Q9965

== ENCOUNTER → 2020-07-02 | Outpatient (CLI) | payer BC ==
[2015-03-03 19:00] VITALS: BP 128/86
--- NOTE | 2020-07-02 08:50 | PDOC ---
Progress Note - Pain Clinic Date of Service: DOS: DATE: 07/02/20 TIME: 08:47 Diagnosis: Dx: Lumbar radiculopathy with lumbar degenerative disc disease and lumbar herniated disc History or Present Illness: HPI: 54-year-old male returns follow-up status post lumbar epidural steroid injection x2 last seen March 07, 2020 patient did very well with about a 90% improvement initially now down about 40% improvement patient ports pain the low back and neck right greater than left lower extremity at this time last time his left leg was more noticeable but is much better his right leg is more noticeable now with pain rating the posterior gluteus posterior thigh posterior calf and foot patient the top of the foot which has some numbness and tingling as well patient reports some mild pain on the left side in the posterior gluteus and thigh but only to the knee patient reports is a 9 on scale 10 is worse over the past week 8 on average 6 its least and is an 8 today. Patient ports sharp shooting burning stabbing constant severe in the low back with walking standing changing positions better with sitting or laying down initially doing much better with distance walking doing household activities work activities travel with greater ease and comfort patient reports is beginning to awaken him sleep now about every 5 hours patient reports no new motor or sensory deficits no new bowel or bladder incontinence or other complaints. Physical Exam: VS: Blood pressure is 125/71 pulse 84 respirations are 18 temperature 97.4 F height is 6 foot 4 inches weight is 273 pounds PE: PHYSICAL EXAMINATION: GENERAL: The patient is awake, alert, oriented, appropriate, very pleasant demeanor HEENT: Shows normocephalic, atraumatic. Extraocular movements are intact and symmetrical. Oral cavity: Mucous membranes moist and pink. NECK: Shows anterior throat supple without palpable lymphadenopathy noted. Swallow reflex symmetrical. CHEST: Shows normal on inspection. Breath sounds are clear bilaterally, no r ales or rhonchi. HEART: Shows S1, S2 clear. No murmurs auscultated. ABDOMEN: Soft, nontender, nondistended, obese. No palpable organomegaly is noted. No rebound or guarding demonstrated. BACK: Shows spine grossly in the midline. Normal-appearing cervical lordotic curvature. There is slightly increased thoracic kyphosis, some minor flattening of the lumbar lordotic curvature. Lumbar paraspinous muscles show symmetrical on inspection, on palpation shows some moderate tenderness diffusely throughout the upper, middle and lower distribution of the paraspinous muscles without specific trigger points, without radiation of pain. The patient has good rotational motion of the lumbar spine, both laterally as well as extension and flexion without significant difficulty. No tenderness over the spinous processes, sacrum or sacroiliac regions. EXTREMITIES: Lower extremities show deep tendon reflexes 2+ in the patellar and tendo calcaneus tendons. Motor exam is 5 on a scale of 5 with right dorsiflexion, extension, quadriceps and hamstring flexion and 5/5 on the left. Peripheral pulses are 1+ posterior tibial. No peripheral edema is noted bilaterally. Lower extremities are warm and dry to touch, equal in color and appearance. SKIN: Shows warm and dry, good turgor. No edema. No sores, rashes or bruising throughout. Procedure: Procedure: Options were discussed with the patient. Patient will chart reviews his current medication regimen updated current review of systems updated today as well. We will proceed with a third in the series lumbar epidural steroid injection today with fluoroscopic guidance. Risks were discussed including but not limited to: Bleeding, infection, possibility of epidural hematoma and subsequent neurological compromise, dural puncture, headaches, spinal cord and/or nerve damage, side effects of steroid medication, and poor results regarding pain control. Patient understands wished to proceed. Patient will return to clinic in approximate 2 weeks for follow-up was counseled as to return appointment activity level and side effects to be aware of. Medication Injected: Med Injected: Procedure is lumbar epidural steroid injection under local anesthetic using sterile prep and drape at the L5-S1 level using C-arm fluoroscopic guidance in both AP and lateral views medications injected is 120 mg Depo-Medrol + 10 mL preservative-free normal saline and 2 mL contrast- condition at discharge is stable patient tolerated procedure well had no complications. Condition at Discharge: Condition at Discharge: Condition at discharge stable, patient tolerated procedure well and had no complications. FLORENCIA FOOTE MD Jul 02, 2020 08:49
== END | disposition home or self-care (01) ==
LOC: PNCL 08:15
PROVIDERS: ATTEND Anesthesiology
DX: M51.16 Intervertebral disc disorders with radiculopathy, lumbar region (principal); F17.210 Nicotine dependence, cigarettes, uncomplicated; Z79.899 Other long term (current) drug therapy
CPT/HCPCS: 62323; J1030; J1040; Q9965

== ENCOUNTER → 2020-08-22 | Outpatient (CLI) | payer BC ==
[2015-03-03 19:00] VITALS: BP 128/86
--- NOTE | 2020-08-22 08:58 | PDOC ---
Progress Note - Pain Clinic Date of Service: DOS: DATE: 08/22/20 TIME: 08:55 Diagnosis: Dx: Lumbar radiculopathy with lumbar degenerative disease and lumbar herniated disc History or Present Illness: HPI: 55-year-old male returns for follow-up status post lumbar epidural steroid injection x3. Last seen July 02, 2020. Patient reports he did very well with near 80% improvement initially now down about 30% improvement overall with pain returning in his low back and mostly in the right lower extremity posterior gluteus posterior thigh posterior calf some on the left side as well but mostly on the right. Patient reports is worse with walking standing changing positions getting in and out of his car difficulty sleeping over the past few weeks only prior to that he was doing much better with distance walking doing household activities work activities with greater ease and comfort travel with greater e ase as well patient rates his pain as a 9 on scale 10 is worst over the past week 7 on average 5 its least is a 7 today. Patient scribes as sharp and dull in the back shooting in the right greater than left lower extremity burning and stabbing the leg as well, more constant with walking and standing. Patient reports no new motor or sensory deficits no new bowel or bladder incontinence or other complaints. Physical Exam: VS: Blood pressure is 121/76 pulse 73 respirations 18 temperature 97.7 degrees. 6 foot 4 inches weight is 264 pounds PE: PHYSICAL EXAMINATION: GENERAL: The patient is awake, alert, oriented, appropriate, very pleasant demeanor HEENT: Shows normocephalic, atraumatic. Extraocular movements are intact and symmetrical. Oral cavity: Mucous membranes moist and pink. Dentition is intact. NECK: Shows anterior throat supple without palpable lymphadenopathy noted. Swallow reflex symmetrical. CHEST: Shows normal on inspection. Breath sounds are clear bilaterally, no rales or rhonchi bilaterally. HEART: Shows S1, S2 clear. No murmurs auscultated. ABDOMEN: Soft, nontender, nondistended, obese. No palpable organomegaly is noted. BACK: Shows spine grossly in the midline. Normal-appearing cervical lordotic curvature. There is increased thoracic kyphosis, some flattening of the lumbar lordotic curvature. Lumbar paraspinous muscles show symmetrical on inspection, on palpation shows some moderate tenderness diffusely throughout the upper, middle and lower distribution of the paraspinous muscles, but without specific trigger points, without radiation of pain. The patient has good rotational motion of the lumbar spine, both laterally as well as extension and flexion without significant difficulty. EXTREMITIES: Lower extremities show deep tendon reflexes 2+ in the patellar and tendo calcaneus tendons. Motor exam is 5 on a scale of 5 with right dorsiflexion, extension, quadriceps and hamstring flexion and 5/5 on the left. Peripheral pulses are 1+ posterior tibial. No peripheral edema is noted bilaterally. Lower extremities are warm and dry to touch, equal in color and appearance. SKIN: Shows warm and dry, good turgor. No edema. No sores, rashes or bruising throughout. Procedure: Procedure: Options discussed with the patient. Patient will chart reviews his current medication regimen updated current review of systems updated today as well. We will proceed with a first in the series lumbar epidural steroid injection today with fluoroscopic guidance. Risks were discussed including but not limited to: Bleeding, infection, possibility of epidural hematoma and subsequent neurological compromise, dural puncture, headaches, spinal cord and/or nerve damage, side effects of steroid medication, and poor results regarding pain control. Patient understands and wished to proceed. Patient will return to the clinic in approximate 2 weeks for follow-up, was counseled as to return appointment activity level and side effects to be aware of. Medication Injected: Med Injected: Procedure is lumbar epidural steroid injection under local anesthetic using sterile prep and drape at the L5-S1 level using C-arm fluoroscopic guidance in both AP and lateral views medications injected is 120 mg Depo-Medrol + 10 mL preservative-free normal saline and 2 mL contrast- condition at discharge is stable patient tolerated procedure well had no complications. Condition at Discharge: Condition at Discharge: Condition at discharge stable, patient tolerated procedure well and had no complications. FLORENCIA FOOTE MD Aug 22, 2020 08:58
--- NOTE | 2020-08-22 08:59 | PDOC4 ---
PROCEDURE Procedure Patient was consented for lumbar epidural steroid injection. Risks were dis cussed including but not limited to: Bleeding, infection, possibility of epidural hematoma and subsequent neurological compromise, dural puncture, headaches, spinal cord and/or nerve damage, side effects of steroid medication, and poor results regarding pain control. Patient understands and wished to proceed. Procedure is lumbar epidural steroid injection under local anesthetic using sterile prep and drape at the L5-S1 level using C-arm fluoroscopic guidance in both AP and lateral views medications injected is 120 mg Depo-Medrol + 10 mL preservative-free normal saline and 2 mL contrast- condition at discharge is stable patient tolerated procedure well had no complications. FLORENCIA FOOTE MD Aug 22, 2020 08:59
== END | disposition home or self-care (01) ==
LOC: PNCL 08:01
PROVIDERS: ATTEND Anesthesiology
DX: M51.16 Intervertebral disc disorders with radiculopathy, lumbar region (principal); F17.210 Nicotine dependence, cigarettes, uncomplicated; Z79.899 Other long term (current) drug therapy
CPT/HCPCS: 62323; J1030; J1040; Q9965

== ENCOUNTER → 2020-10-21 | Outpatient (CLI) | payer BC ==
[2015-03-03 19:00] VITALS: BP 128/86
--- NOTE | 2020-10-21 08:17 | PDOC ---
Progress Note - Pain Clinic Date of Service: DOS: DATE: 10/21/20 TIME: 08:13 Diagnosis: Dx: Lumbar radiculopathy with lumbar degenerative disease and lumbar herniated disc History or Present Illness: HPI: 55-year-old male returns follow-up status post lumbar epidural steroid injection x1. Patient reports he did very well for the first month then pain began to return for initially about 80% improvement but now down to about 20% overall pain patient reports pain in the low back and bilateral lower extremities somewhat worse on the right than the left at this time but present bilaterally. Patient reports no new motor or sensory deficits with still significant pain with walking standing changing positions sitting for prolonged periods. Patient reports pain sharp burning and stabbing the back constant and radiating can be severe and unbearable with extended walking standing better with sitting or laying down but has been waking from sleep about every 4-6 hours patient reports he can usually reposition and get back to sleep. Patient rates his pain is a 9 on scale 10 is worse in the past week 8 on average 7 its least and 8 8 today patient reports burning stabbing sharp constant and severe patient reports no new motor or sensory deficits no bowel or bladder incontinence. Physical Exam: VS: Blood pressure is 121/86 pulse 54 respirations are 18 temperature 97.8 F height is 6 foot 4 inches weight 268 pounds PE: PHYSICAL EXAMINATION: GENERAL: The patient is awake, alert, oriented, appropriate, very pleasant demeanor HEENT: Shows normocephalic, atraumatic. Extraocular movements are intact and symmetrical. Oral cavity: Mucous membranes moist and pink. Dentition is intact. NECK: Shows anterior throat supple without palpable lymphadenopathy noted. Swallow reflex symmetrical. CHEST: Shows normal on inspection. Breath sounds are clear bilaterally. HEART: Shows S1, S2 clear. No murmurs auscultated. ABDOMEN: Soft, nontender, nondistended, obese. No palpable organomegaly is noted. No rebound or guarding demonstrated. BACK: Shows spine grossly in the midline. Normal-appearing cervical lordotic curvature. There is slightly increased thoracic kyphosis, some minor flattening of the lumbar lordotic curvature. Lumbar paraspinous muscles show symmetrical on inspection, on palpation shows some moderate tenderness diffusely throughout the upper, middle and lower distribution of the paraspinous muscles without specific trigger points, without radiation of pain. The patient has good rotational motion of the lumbar spine, both laterally as well as extension and flexion without significant difficulty. No tenderness over the spinous processes, sacrum or sacroiliac regions. EXTREMITIES: Lower extremities show deep tendon reflexes 2+ in the patellar and tendo calcaneus tendons. Motor exam is 5 on a scale of 5 with right dorsiflexion, extension, quadriceps and hamstring flexion and 5/5 on the left. Peripheral pulses are 1+ posterior tibial. No peripheral edema is noted bilaterally. Lower extremities are warm and dry to touch, equal in color and appearance. SKIN: Shows warm and dry, good turgor. No edema. No sores, rashes or bruising throughout. Procedure: Procedure: Options discussed with the patient. Patient's old chart was viewed as his current review of systems updated and current medication list updated. We will proceed with a second in the series lumbar epidural steroid injection today with fluoroscopic guidance. Risks were discussed including but not limited to: Bleeding, infection, possibility of epidural hematoma and subsequent neurological compromise, dural puncture, headaches, spinal cord and/or nerve damage, side effects of steroid medication, and poor results regarding pain control. Patient understands and wished to proceed. Patient will return to the clinic in approximate 2 weeks for follow-up, was counseled as to return appointment activity level and side effects to be aware of. Medication Injected: Med Injected: Procedure is lumbar epidural steroid injection under local anesthetic using sterile prep and drape at the L5-S1 level using C-arm fluoroscopic guidance in both AP and lateral views medications injected is 120 mg Depo-Medrol + 10 mL preservative-free normal saline and 2 mL contrast- condition at discharge is stable patient tolerated procedure well had no complications. Condition at Discharge: Condition at Discharge: Condition at discharge stable, patient already procedure well and had no complications. FLORENCIA FOOTE MD October 21, 2020 08:17
--- NOTE | 2020-10-21 08:18 | PDOC4 ---
PROCEDURE Procedure Patient was consented for lumbar epidural steroid injection. Risks were dis cussed including but not limited to: Bleeding, infection, possibility of epidural hematoma and subsequent neurological compromise, dural puncture, headaches, spinal cord and/or nerve damage, side effects of steroid medication, and poor results regarding pain control. Patient understands and wished to proceed. Procedure is lumbar epidural steroid injection under local anesthetic using sterile prep and drape at the L5-S1 level using C-arm fluoroscopic guidance in both AP and lateral views medications injected is 120 mg Depo-Medrol + 10 mL preservative-free normal saline and 2 mL contrast- condition at discharge is stable patient tolerated procedure well had no complications. FLORENCIA FOOTE MD October 21, 2020 08:18
== END | disposition home or self-care (01) ==
LOC: PNCL 07:48
PROVIDERS: ATTEND Anesthesiology
DX: M51.16 Intervertebral disc disorders with radiculopathy, lumbar region (principal); F17.210 Nicotine dependence, cigarettes, uncomplicated; Z79.899 Other long term (current) drug therapy
CPT/HCPCS: 62323; J1030; J1040; Q9965

== ENCOUNTER → 2020-12-30 | Outpatient (CLI) | payer BC ==
[2015-03-03 19:00] VITALS: BP 128/86
--- NOTE | 2020-12-30 08:21 | PDOC ---
Progress Note - Pain Clinic Date of Service: DOS: DATE: 12/30/20 TIME: 08:16 Diagnosis: Dx: Lumbar radiculopathy with lumbar herniated disc and lumbar degenerative disc disease History or Present Illness: HPI: 55-year-old male returns for follow-up status post lumbar epidural steroid ejections x2 last seen October 21, 2020. Patient reports he did very well initially about 75% improvement but now about 20% improvement overall pain returning now more in the right leg than the left leg but present bilaterally in the bilateral lower extremities posterior gluteus posterior thighs posterior calves more noticeable on the right than the left and additionally have been worse on the left side patient MRI was reviewed with him today as well also patient taking meloxicam which helps by about 10 to 20% as well patient reports pain is sharp and shooting in the right lower extremity as well as left lower extremity bur ramírez and stabbing in the back can be constant severe rated as an 8 on scale 10 is worse over the past week 7 on average 6 its least is a 7 today. Patient reports better with sitting or laying down wakes him from sleep about once every 5 hours and patient reports increased spasticity in the back and the legs as well with some muscle cramps and spastic sensation in the back and legs. Patient reports no new motor or sensory deficits no bowel or bladder incontinence. Physical Exam: VS: Blood pressure is 135/75 pulse 78 respirations 18 temperature is 97.9 F height 6 foot 4 inches weight is 271 pounds PE: PHYSICAL EXAMINATION: GENERAL: The patient is awake, alert, oriented, appropriate, very pleasant in d emeanor HEENT: Shows normocephalic, atraumatic. Extraocular movements are intact and symmetrical. Oral cavity: Mucous membranes moist and pink. NECK: Shows anterior throat supple without palpable lymphadenopathy noted. Swallow reflex symmetrical. CHEST: Shows normal on inspection. Breath sounds are clear bilaterally. HEART: Shows S1, S2 clear. No murmurs auscultated. ABDOMEN: Soft, nontender, nondistended, obese. BACK: Shows spine grossly in the midline. Normal-appearing cervical lordotic curvature. There is slightly increased thoracic kyphosis, some minor flattening of the lumbar lordotic curvature. Lumbar paraspinous muscles show symmetrical on inspection, on palpation shows some moderate tenderness diffusely throughout the upper, middle and lower distribution of the paraspinous muscles, without specific trigger points, without radiation of pain. The patient has good r otational motion of the lumbar spine, both laterally as well as extension and flexion without significant difficulty. EXTREMITIES: Lower extremities show deep tendon reflexes 2+ in the patellar and tendo calcaneus tendons. Motor exam is 5 on a scale of 5 with right dorsiflexion, extension, quadriceps and hamstring flexion and 5/5 on the left. Peripheral pulses are 1+ posterior tibial. No peripheral edema is noted bilaterally. Lower extremities are warm and dry. SKIN: Shows warm and dry, good turgor. No edema. No sores, rashes or bruising throughout. Procedure: Procedure: Options were discussed with the patient. Patient's old chart reviewed his current medication regimen updated current review of systems updated today as well. We will proceed with a third in the series lumbar epidural steroid injection stable fluoroscopic guidance. Risks were discussed including but not limited to: Bleeding, infection, possibility of epidural hematoma and subsequent neurological compromise, dural puncture, headaches, spinal cord and/or nerve damage, side effects of steroid medication, and poor results regarding pain control. Patient understands and wished to proceed. Also will add new medication of Flexeril 10 mg 3 times daily, p.o starting nightly initially. Patient continue with meloxicam once daily 15 mg if he feels this does help to a moderate extent. Medication Injected: Med Injected: Procedure is lumbar epidural steroid injection under local anesthetic using sterile prep and drape at the L5-S1 level using C-arm fluoroscopic guidance in both AP and lateral views medications injected is 120 mg Depo-Medrol +10mL preservative-free normal saline and 2 mL contrast- condition at discharge is stable patient tolerated procedure well had no complications. Condition at Discharge: Condition at Discharge: Condition at discharge stable, patient already procedure well and had no complications. FLORENCIA FOOTE MD Dec 30, 2020 08:21
--- NOTE | 2020-12-30 08:21 | PDOC4 ---
Procedure Note: Procedure Note: Patient was consented for lumbar epidural steroid injection. Risks were discussed including but not limited to: Bleeding, infection, possibility of epidural hematoma and subsequent neurological compromise, dural puncture, headaches, spinal cord and/or nerve damage, side effects of steroid medication, and poor results regarding pain control. Patient understands and wished to proceed. Procedure is lumbar epidural steroid injection under local anesthetic using sterile prep and drape at the L5-S1 level using C-arm fluoroscopic guidance in both AP and lateral views medications injected is 120 mg Depo-Medrol +10mL preservative-free normal saline and 2 mL contrast- condition at discharge is stable patient tolerated procedure well had no complications. FLORENCIA FOOTE MD Dec 30, 2020 08:21
== END | disposition home or self-care (01) ==
LOC: PNCL 07:42
PROVIDERS: ATTEND Anesthesiology
DX: M51.16 Intervertebral disc disorders with radiculopathy, lumbar region (principal); F17.210 Nicotine dependence, cigarettes, uncomplicated; Z79.899 Other long term (current) drug therapy
CPT/HCPCS: 62323; J1030; J1040; Q9965

== ENCOUNTER → 2021-07-07 | Outpatient (CLI) | payer BC ==
[2015-03-03 19:00] VITALS: BP 128/86
[~2021-07-07] MED LIST changes: +CYCL10TA19 PO; -LURA40TA PO; +LURA40TA2 PO; -methylPREDNISolone ACETATE 40 MG/ML VIAL. ONE
--- NOTE | 2021-07-07 08:20 | PDOC ---
Progress Note - Pain Clinic Date of Service: DOS: DATE: 07/07/21 TIME: 08:14 Diagnosis: Dx: Lumbar radiculopathy with lumbar herniated disc and lumbar degenerative disc disease History or Present Illness: HPI: 55-year-old male returns for follow-up last seen December 30, 2020 patient did very well after lumbar epidural steroid injection with pain in the low back and bilateral lower extremities. Patient reports about 80% improvement initially now down about 40% improvement over the past month or so patient reports the first 2 months to do much better increased distance walking doing household activities travel with greater ease and comfort sleeping better patient still taking Flexeril which we have started on him in December as well mostly at night it does help him sleep patient reports occasional take during the day but does cause him drowsiness. Patient reports the pain now is changed as is across the low back but is in the right lower extremity more significantly than previously where it was only in his back patient report is now on the right leg posterior gluteus posterior thigh posterior calf lateral thigh and calf as well into the ankle and foot worse with walking standing change positions patient reports the left leg is doing fine oriented literally had some pain on the left side is now gone well on the right side now rated as a 9 on scale 10 is worst at 8 on average 6 its least is a 7 today. Patient reports no bowel or bladder incontinence no loss of motor function, but has significant fatigability in the right lower extremity with walking and standing, as well as changing positions. Patient reports no bowel or bladder incontinence. Physical Exam: VS: Blood pressure is 119/89 pulse is 85 respirations 16 temperature 97.9 F height is 6 foot 4 inches weight is 268 pounds. PE: PHYSICAL EXAMINATION: GENERAL: The patient is awake, alert, oriented, appropriate, very pleasant in demeanor HEENT: Shows normocephalic, atraumatic. Extraocular movements are intact and symmetrical. Oral cavity: Mucous membranes moist and pink. Dentition is intact. NECK: Shows anterior throat supple without palpable lymphadenopathy noted. Swallow reflex symmetrical. CHEST: Shows normal on inspection. Breath sounds are clear bilaterally, distant but no rales or rhonchi. HEART: Shows S1, S2 clear. No murmurs auscultated. ABDOMEN: Soft, nontender, nondistended. No palpable organomegaly is noted. BACK: Shows spine grossly in the midline. Normal-appearing cervical lordotic curvature. There is mildly increased thoracic kyphosis, some minor flattening of the lumbar lordotic curvature. Lumbar paraspinous muscles show symmetrical on inspection, on palpation shows some moderate tenderness diffusely throughout the upper, middle and lower distribution of the paraspinous muscles, but without specific trigger points, without radiation of pain. The patient has good rotational motion of the lumbar spine, both laterally as well as extension and flexion without significant difficulty. No tenderness over the spinous processes, sacrum or sacroiliac regions. EXTREMITIES: Lower extremities show deep tendon reflexes 2+ in the patellar and tendo calcaneus tendons. Motor exam is 5 on a scale of 5 with right dorsiflexion, extension, quadriceps and hamstring flexion and 5/5 on the left. Peripheral pulses are 1+ posterior tibial. No peripheral edema is noted bilaterally. Lower extremities are warm and dry to touch, equal in color and appearance. Straight leg raise noted to be positive on the right only at about 35 degrees decreased with knee flexion. SKIN: Shows warm and dry, good turgor. No edema. No sores, rashes or bruising throughout. Procedure: Procedure: Options were discussed with the patient. Patient chart reviews his current medication regimen updated current review of systems updated today as well. We will proceed with lumbar epidural steroid injection today with fluoroscopic guidance. Risks were discussed including but not limited to: Bleeding, infection, possibility of epidural hematoma and subsequent neurological compromise, dural puncture, headaches, spinal cord and/or nerve damage, side effects of steroid medication, and poor results regarding pain control. Patient understands and wished to proceed. Return to clinic in approximately 4 weeks for follow-up, was counseled as to return appointment, activity level, and side effects to be aware of. Medication Injected: Med Injected: Procedure is lumbar epidural steroid injection under local anesthetic using sterile prep and drape at the L5-S1 level using C-arm fluoroscopic guidance in both AP and lateral views medications injected is 120 mg Depo-Medrol +10mL preservative-free normal saline and 2 mL contrast- condition at discharge is stable patient tolerated procedure well had no complications. Condition at Discharge: Condition at Discharge: Condition at discharge stable, paced tolerated procedure well and had no complications. FLORENCIA FOOTE MD Jul 07, 2021 08:20
--- NOTE | 2021-07-07 08:20 | PDOC4 ---
Procedure Note: ICD 10 Code: ICD 10 Code: M54.17 M51.87 Procedure Note: Patient was consented for lumbar epidural steroid injection with fluoroscopic guidance. Risks were discussed including but not limited to: Bleeding, infection, possibility of epidural hematoma and subsequent neurological compromise, dural puncture, headaches, spinal cord and/or nerve damage, side effects of steroid medication, and poor results regarding pain control. Patient understands and wished to proceed. Procedure is lumbar epidural steroid injection under local anesthetic using sterile prep and drape at the L5-S1 level using C-arm fluoroscopic guidance in both AP and lateral views medications injected is 120 mg Depo-Medrol +10mL preservative-free normal saline and 2 mL contrast- condition at discharge is stable patient tolerated procedure well had no complications. FLORENCIA FOOTE MD Jul 07, 2021 08:20
== END | disposition home or self-care (01) ==
LOC: PNCL 07:32
PROVIDERS: ATTEND Anesthesiology
DX: M51.16 Intervertebral disc disorders with radiculopathy, lumbar region (principal); F17.210 Nicotine dependence, cigarettes, uncomplicated; Z79.899 Other long term (current) drug therapy
CPT/HCPCS: 62323; J1040; Q9965; 62322